=== PATIENT | female | born 1950 | race Caucasian/White ===

== ENCOUNTER 2017-09-10 05:07 | Inpatient (IN) | payer OTHER ==
[~2017-09-10] VITALS: Ht 167.6 cm; Wt 84.4 kg
[2017-09-11] MEDS ORDERED: DOCUSATE SODIU100 MG PO (11:06)
[2017-09-11] MEDS ORDERED: PERCOCET 5-3251 EACH PO (11:06)
[2017-09-11] MEDS ORDERED: CLONAZEPAM1 MG PO (11:06)
[2017-09-11] MEDS ORDERED: COLACE100 MG PO (12:53)
[2017-09-11] MEDS ORDERED: ACETAMINOPHEN-1 EAC2 PO (12:53)
== END 2017-09-11 13:36 | disposition home or self-care (01) | DRG 454 ==
LOC: O/R 05:07 → SURG 13:33 → SURH 14:05 → SURG 09-11 13:36
PROVIDERS: Orthopaedic Surgery Orthopaedic Surgery of the Spine
PROC: 0RG20A0 Fusion of 2 or more Cervical Vertebral Joints with Interbody Fusion Device, Anterior Approach, Anterior Column, Open Approach (ICD-10-PCS; 2017-09-10)
PROC: 0RG10K1 Fusion of Cervical Vertebral Joint with Nonautologous Tissue Substitute, Posterior Approach, Posterior Column, Open Approach (ICD-10-PCS; 2017-09-10)
PROC: 0RT30ZZ Resection of Cervical Vertebral Disc, Open Approach (ICD-10-PCS; principal; 2017-09-10 14:00)
DX: M50.021 Cervical disc disorder at C4-C5 level with myelopathy (principal); M47.12 Other spondylosis with myelopathy, cervical region; I10 Essential (primary) hypertension